=== PATIENT | female | born 1985 | race Two or more races ===

== ENCOUNTER 2018-12-01 06:09 | Inpatient (IN) ==
[2018-12-01] MEDS ORDERED: BUTORPHANOL 2 MG/ML VIAL IV PRN (06:18)
[2018-12-01] MEDS ORDERED: ONDANSETRON 4 MG/2 ML VIAL IV PRN (06:18)
[2018-12-01] MEDS ORDERED: MEPERIDINE 50 MG/1 ML VIAL IV PRN (06:18)
[2018-12-01] MEDS: LACTATED RINGERS 1,000 ML IV SCH ×2 (06:40→14:28)
[2018-12-01 07:11] LABS: Basophils % 0.3 % (0.0-0.8); Eosinophils # 0.1 10*3/uL (0.0-0.87); Eosinophils % 1.9 % (0.00-10.9); Hematocrit 29.1 VOL% (35.7-47.0); Hemoglobin 8.6 GM/DL (12.0-16.0); Immature Granulocytes % 1.7 %; Lymphocytes % 33.9 % (21.3-54.2); Mean Corpuscular HGB Conc 29.6 GM/DL (32-36); Mean Corpuscular Volume 73.1 FL (87-102); Mean Platelet Volume 10.7 FL (9.6-12.0); Monocytes % 9.5 % (1.7-12.7); Neutrophils % 52.7 % (38.7-73.9); Platelet Count 288 T/CUMM (130-400); Red Blood Count 3.98 MC/CUMM (3.8-5.5); Red Cell Distribution Width 17.1 % (9.3-17.3); White Blood Count 5.8 T/CUMM (4-12)
[2018-12-01 07:34] LABS: Alanine Aminotransferase 17 U/L (13-56); Albumin 2.8 G/DL (3.4-5.0); Alkaline Phosphatase 164 U/L (45-117); Aspartate Amino Transferase 16 U/L (0-37); Bilirubin,Total < 0.39 MG/DL (0.2-1.0); Blood Urea Nitrogen 9 MG/DL (7-18); Calcium 8.7 MG/DL (8.5-10.1); Estimated Glom Filtration Rate 128 ML/MIN; Glucose 90 MG/DL (74-106); Osmolality,Calculated 275.5 MOS/KG (273-304); Total Protein 6.8 G/DL (6.4-8.3)
[2018-12-01] MEDS: OXYTOCIN/LR 20 UNIT/1,000 ML BAG IV SCH ×2 (07:44→19:20)
[2018-12-01] MEDS ORDERED: FAMOTIDINE 20 MG/2 ML VIAL IV ONE (08:33)
[2018-12-01] MEDS ORDERED: LACTATED RINGERS 1,000 ML IV ONE (08:33)
[2018-12-01] MEDS ORDERED: CITRIC ACID/SODIUM CITRATE 30 ML UDCUP PO ONE (08:33)
[2018-12-01] MEDS ORDERED: ePHEDrine 50 MG/ML AMP IV PRN (08:33)
[2018-12-01] MEDS ORDERED: hydrOXYzine HCL 25 MG/1 ML VIAL IM PRN (08:34)
[2018-12-01] MEDS ORDERED: PROMETHAZINE 25 MG/1 ML VIAL IM ONE (08:34)
[2018-12-01] MEDS ORDERED: diphenhydrAMINE 50 MG/1 ML VIAL IV PRN ×2 (08:34)
[2018-12-01] MEDS ORDERED: NALOXONE 0.4 MG/ML VIAL IV PRN (08:34)
[2018-12-01] MEDS ORDERED: fentaNYL 2 MCG/ROPIV 0.2% EPID 100 ML EPIDURAL SCH (09:00)
[2018-12-01 12:41] LABS: Apearance,Urine CLEAR (Clear); Bilirubin,Urine Negative (Negative); Blood, Urine Negative (Negative); Glucose,Urine (UA) Negative (Negative); Ketones,Urine Negative (Negative); Mucus,Urine Few /LPF (Occasional); Nitrite,Urine Negative (Negative); Protein,Urine Negative; RBC,Urine <1 /HPF (0-4); Squamous Epithelial Cell,Urine Occasional /HPF (0-10); Transitional Epi Cells,Urine Occasional /HPF (<1); Urine Color Yellow (Yellow); Urine Specific Gravity 1.016 (1.001-1.035); Urine Urobilinogen < 2.0 EU/DL (0.2-1.0); WBC,Urine 1 /HPF (0-6)
[2018-12-01] MEDS ORDERED: METHYLERGONOVINE 0.2 MG/1 ML AMP ONE (14:44)
[2018-12-01] MEDS ORDERED: CARBOPROST TROMETHAMINE 250 MCG/ML AMP IM ONE (14:44)
[2018-12-01] MEDS ORDERED: miSOPROStoL 200 MCG TABLET ONE (14:44)
[2018-12-01 17:19] LABS: Cord Arterial Blood HCO3 15.4 MMOL/L
[2018-12-01 17:25] LABS: Cord Venous Blood HCO3 17.2 MMOL/L
[2018-12-01] MEDS ORDERED: oxyCODONE/ACETAMINOPHEN 5-325 MG TABLET PO PRN (20:17)
[2018-12-01] MEDS ORDERED: LANOLIN 50% CREAM 0.3 OZ TUBE TOP PRN (20:17)
[2018-12-01] MEDS ORDERED: DIPH/TET/ACEL PERT BOOSTER VACCINE 0.5 ML VIAL IM ONE (20:17)
[2018-12-01] MEDS ORDERED: HYDROCORTISONE 2.5% RECTAL CREAM 30 GM TUBE TOP PRN (20:17)
[2018-12-01] MEDS ORDERED: MEASLES/MUMPS/RUBELLA VACCINE 0.5 ML VIAL SUBCUT ONE (20:17)
[2018-12-01] MEDS ORDERED: RHO(D) IMMUNE GLOBULIN 300 MCG SYRINGE IM ONE (20:17)
[2018-12-01] MEDS ORDERED: ACETAMINOPHEN 325 MG TABLET PO PRN (20:17)
[2018-12-01] MEDS ORDERED: BISACODYL 10 MG SUPP RECTAL PRN (20:17)
[2018-12-01] MEDS ORDERED: BENZOCAINE 20%/MENTHOL 0.5% SPRAY 56 GM CAN TOP PRN (20:17)
[2018-12-01] MEDS ORDERED: WITCH HAZEL PADS 100/JAR TOP PRN (20:17)
[2018-12-01] MEDS: DOCUSATE SODIUM 100 MG CAPSULE PO SCH (21:10)
[2018-12-02] MEDS: oxyCODONE/ACETAMINOPHEN 5-325 MG TABLET PO PRN ×3 (03:26→22:16)
[2018-12-02 04:24] LABS: Basophils % 0.3 % (0.0-0.8); Eosinophils # 0.1 10*3/uL (0.0-0.87); Eosinophils % 1.1 % (0.00-10.9); Hematocrit 26.3 VOL% (35.7-47.0); Hemoglobin 7.8 GM/DL (12.0-16.0); Immature Granulocytes % 0.6 %; Immature Granulocytes Absolute 0.06 #; Lymphocytes # 2.3 10*3/uL (1.4-4.0); Lymphocytes % 21.5 % (21.3-54.2); Mean Corpuscular HGB Conc 29.7 GM/DL (32-36); Mean Corpuscular Volume 72.9 FL (87-102); Mean Platelet Volume 10.9 FL (9.6-12.0); Monocytes % 9.6 % (1.7-12.7); Neutrophils % 66.9 % (38.7-73.9); Platelet Count 260 T/CUMM (130-400); Red Blood Count 3.61 MC/CUMM (3.8-5.5); Red Cell Distribution Width 16.8 % (9.3-17.3); White Blood Count 10.7 T/CUMM (4-12)
[2018-12-02] MEDS ORDERED: SODIUM CHLORIDE 0.9% 1,000 ML IV PRN (09:30)
[2018-12-02] MEDS: FERROUS SULFATE 325 MG TABLET PO SCH ×2 (09:51→22:16)
[2018-12-02] MEDS: DOCUSATE SODIUM 100 MG CAPSULE PO SCH ×2 (09:52→22:16)
[2018-12-02] MEDS: IBUPROFEN 800 MG TABLET PO PRN ×2 (10:04→22:16)
[2018-12-02 15:28] LABS: Hematocrit 28.8 VOL% (35.7-47.0); Hemoglobin 8.8 GM/DL (12.0-16.0)
[2018-12-03] MEDS: IBUPROFEN 800 MG TABLET PO PRN ×2 (05:15→10:06)
[2018-12-03] MEDS: oxyCODONE/ACETAMINOPHEN 5-325 MG TABLET PO PRN ×2 (05:15→10:07)
[2018-12-03 07:23] VITALS: BP 121/64
[2018-12-03] MEDS: DOCUSATE SODIUM 100 MG CAPSULE PO SCH (10:06)
[2018-12-03] MEDS: FERROUS SULFATE 325 MG TABLET PO SCH (10:06)
== END 2018-12-03 13:15 | disposition home or self-care (01) | DRG 560 ==
LOC: N.LDOUT 06:09 → N.LD 06:10 → N.OB 21:03
PROVIDERS: ADMIT Obstetrics & Gynecology; ATTEND Obstetrics & Gynecology